=== PATIENT | female | born 1990 | race Caucasian/White ===

== ENCOUNTER 2016-10-08 17:59 | Emergency (ER) | payer BC ==
[2016-10-08 18:16] VITALS: BP 145/75
--- NOTE | 2016-10-08 19:59 | EDM.PDOC ---
ED HPI GENERAL MEDICAL PROBLEM - General Chief Complaint: Respiratory Problem Stated Complaint: COUGH Time Seen by Provider: 10/08/16 19:04 Source of Information: Reports: Patient, Family (), RN Notes Reviewed History Limitations: Reports: No Limitations - History of Present Illness INITIAL COMMENTS - FREE TEXT/NARRATIVE: The patient states that she has had a cough, occasionally productive of yellow sputum, since yesterday. She states that when she coughs, she sometimes feels short of breath. No recent fever. She states that her symptoms are similar to previous bouts that she was told were due to bronchitis. Previous treatments included inhaled medicines along with steroids and antibiotics. She states that she was diagnosed with hayfever about 2 weeks ago, and was treated with Zyrtec. Chest Pain Score (Numeric/FACES): 2 - Related Data Allergies Allergy/AdvReac Type Severity Reaction Status Date / Time No Known Allergies Allergy Verified 10/08/16 18:16 Home Meds: Home Meds . 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[employer]) ED ROS GENERAL - Review of Systems Review Of Systems: See Below Constitutional: Reports: No Symptoms HEENT: Reports: Rhinitis Respiratory: Reports: Cough, Sputum (yellow) Cardiovascular: Reports: No Symptoms Endocrine: Reports: No Symptoms GI/Abdominal: Reports: No Symptoms : Reports: No Symptoms Musculoskeletal: Reports: No Symptoms Skin: Reports: No Symptoms Neurological: Reports: No Symptoms Psychiatric: Reports: No Symptoms Hematologic/Lymphatic: Reports: No Symptoms Immunologic: Reports: No Symptoms ED EXAM, GENERAL - Physical Exam Exam: See Below Exam Limited By: No Limitations General Appearance: Alert, WD/WN, No Apparent Distress Eye Exam: Bilateral Eye: Normal Inspection Ears: Normal External Exam, Normal Canal, Hearing Grossly Normal, Normal TMs Ear Exam: Bilateral Ear: Auricle Normal, Canal Normal, TM normal Nose: Normal Inspection, No Blood, Clear Rhinorrhea, Other (Bilateral nasal mucosal edema) Throat/Mouth: Normal Inspection, Normal Lips, Normal Teeth, Normal Gums, Normal Voice, No Airway Compromise, Other (Retropharyngeal streaking, consistent with postnasal drip) Head: Atraumatic, Normocephalic Neck: Normal Inspection, Supple, Non-Tender, Full Range of Motion. No: Lymphadenopathy (L), Lymphadenopathy (R) Respiratory/Chest: No Respiratory Distress, Lungs Clear, Normal Breath Sounds, No Accessory Muscle Use, Chest Non-Tender. No: Crackles, Wheezing Cardiovascular: Normal Peripheral Pulses, Regular Rate, Rhythm, No Gallop, No JVD, No Murmur, No Rub Peripheral Pulses: 4+: Radial (L), Radial (R) GI/Abdominal: Normal Bowel Sounds, Soft, Non-Tender, No Organomegaly, No Distention, No Abnormal Bruit, No Mass (Female) Exam: Deferred Rectal (Female) Exam: Deferred Back Exam: Normal Inspection, Full Range of Motion, NT Extremities: Normal Inspection, Normal Range of Motion, No Pedal Edema, Normal Capillary Refill Neurological: Alert, Oriented, Normal Cognition, No Motor/Sensory Deficits Psychiatric: Normal Affect Skin Exam: Warm, Dry, Intact, Normal Color, No Rash Lymphatic: No Adenopathy Course - Vital Signs Last Recorded V/S: Last Vital Signs Temp 36.9 C 10/08/16 18:13 Pulse 85 10/08/16 18:13 Resp 18 10/08/16 18:13 BP 145/75 H 10/08/16 18:13 Pulse Ox 100 10/08/16 18:13 - Orders/Labs/Meds Orders: Active Orders 24 hr Category Date Time Status Chest 2V [CR] Stat Exams 10/08/16 19:15 Taken Labs: Laboratory Tests 10/08/16 10/08/16 Range/Units 19:27 19:27 WBC 10.03 (3.98-10.04) K/mm3 RBC 4.79 (3.98-5.22) M/mm3 Hgb 14.6 (11.2-15.7) gm/L Hct 42.1 (34.1-44.9) % MCV 87.9 (79.4-94.8) fl MCH 30.5 (25.6-32.2) pg MCHC 34.7 (32.2-35.5) g/dl RDW Std Deviation 38.7 (36.4-46.3) fL Plt Count 184 (182-369) K/mm3 MPV 10.1 (9.4-12.3) fl Neutrophils % (Manual) 76 H (40-60) % Band Neutrophils % 0 (0-10) % Lymphocytes % (Manual) 15 L (20-40) % Atypical Lymphs % 0 % Monocytes % (Manual) 2 (2-10) % Eosinophils % (Manual) 6 H (0.7-5.8) % Basophils % (Manual) 1 (0.1-1.2) Platelet Estimate Adequate Plt Morphology Comment Normal RBC Morph Comment Normal Sodium 143 (136-145) mEq/L Potassium 3.5 (3.5-5.1) mEq/L Chloride 107 (98-107) mEq/L Carbon Dioxide 26 (21-32) mEq/L Anion Gap 13.5 (5-15) BUN 5 L (7-18) mg/dL Creatinine 0.9 (0.55-1.02) mg/dL Est Cr Clr Drug Dosing 110.27 mL/min Estimated GFR (MDRD) > 60 (>60) mL/min BUN/Creatinine Ratio 5.6 L (14-18) Glucose 93 (74-106) mg/dL Calcium 8.7 (8.5-10.1) mg/dL Total Bilirubin 0.8 (0.2-1.0) mg/dL AST 34 (15-37) U/L ALT 33 (14-59) U/L Alkaline Phosphatase 102 (46-116) U/L C-Reactive Protein 1.5 H* (<1.0) mg/dL Total Protein 7.8 (6.4-8.2) g/dl Albumin 4.0 (3.4-5.0) g/dl Globulin 3.8 gm/dL Albumin/Globulin Ratio 1.1 (1-2) - Radiology Interpretation Free Text/Narrative:: Two-view chest radiograph appears to be grossly normal. Cardiac silhouette is within normal limits. No pulmonary vascular congestion. No pleural effusions. No focal infiltrate. No pneumothorax. Formal read per the Radiologist pending. - Re-Assessments/Exams Free Text/Narrative Re-Assessment/Exam: 05/14/17 20:17 Test results discussed with the patient. The patient does not have an elevated WBC count concerning for infection, and her CRP is only slightly elevated at 1.5. Her chest radiograph shows no infiltrate, nor any bronchial markings. Further, while the patient is complaining of a cough, it is only occasionally productive, and there are no wheezes on auscultation. There is retropharyngeal streaking, consistent with postnasal drip. In short, the patient appears to have a viral URI with cough, not bronchitis. I explained to the patient that there are no medicines that we can give to modify the course of a viral URI. Departure - Departure Time of Disposition: 20:21 Disposition: Home, Self-Care 01 Condition: good Clinical Impression: Viral URI with cough - Discharge Information Instructions: Upper Respiratory Infection, Adult, [id number] Referrals: PCP,None [Primary Care Provider] - Kathi Isaacs PA-C [Physician [employer]] - Forms: ED Department Discharge Additional Instructions: You were seen in the emergency room for a cough and some shortness of breath since yesterday. Workup in the ER included a CBC, CMP, CRP, and a chest x-ray. Your entire workup was normal, with the exception of your CRP (inflammatory marker) being slightly elevated at 1.5. This is consistent with a viral illness , not a bacterial infection. Your chest x-ray is normal, with no suggestion of pneumonia or bronchitis. You MOST LIKELY have a viral upper respiratory infection with cough, also known as a common cold. Unfortunately, there are no medicines that alter the course of a common cold, and we DO NOT recommend you take any [id number] cough or cold remedies, as they do not work. If your symptoms persist, please followup with Kathi Isaacs in the clinic. If any other problems, please do not hesitate to return to the ER. - My Orders Last 24 Hours: My Active Orders 10/08/16 19:15 Chest 2V [CR] Stat - Assessment/Plan Last 24 Hours: My Active Orders 10/08/16 19:15 Chest 2V [CR] Stat
--- NOTE | 2016-10-09 09:49 | CR ---
Chest: Two views of the chest were obtained. Comparison: Previous chest x-ray of 02/25/09. Heart size and mediastinum are normal. Lungs are clear. Bony structures show minimal scoliosis within the spine. Impression: 1. Nothing acute is identified on two-view chest x-ray. Diagnostic code #1
== END 2016-10-08 21:00 | disposition home or self-care (01) ==
LOC: JD.ED 17:59
DX: J06.9 Acute upper respiratory infection, unspecified (principal); F17.210 Nicotine dependence, cigarettes, uncomplicated
CPT/HCPCS: 36415; 71020; 71020-26; 80053; 85025; 86140; 99282; 99285

== ENCOUNTER 2022-02-13 11:15 | Inpatient (IN) | payer BC ==
[~2022-02-13 11:15] MED LIST: Bupivacaine 0.25% 10 ML SDV ONE
[2022-02-13] MEDS ORDERED: Ondansetron 4 MG/2 ML SDV IVPUSH PRN (11:29)
[2022-02-13] MEDS ORDERED: Sodium Chloride 0.9% 10 ML Syringe FLUSH PRN (11:29)
[2022-02-13] MEDS ORDERED: Nalbuphine HCl 10 MG/ 1ML Amp IVPUSH PRN (11:29)
[2022-02-13] MEDS ORDERED: Lidocaine 1% 50 ML MDV INJECT ONE (11:29)
[2022-02-13] MEDS ORDERED: Oxytocin/Lactated Ringers 10 UNIT/1,000 ML BAG IV SCH ×2 (11:30)
[2022-02-13] MEDS: Lactated Ringers 1,000 ML IV SCH ×2 (12:00→13:23)
[2022-02-13] MEDS ORDERED: fentaNYL 100 MCG/2 ML SDV EPIDUR PRN (13:01)
[2022-02-13] MEDS ORDERED: diphenhydrAMINE 50 MG/ML SDV IVPUSH PRN (13:01)
[2022-02-13] MEDS ORDERED: ePHEDrine 50 MG/ML SDV IVPUSH PRN (13:01)
[2022-02-13] MEDS ORDERED: Bupivacaine/fentaNYL/NS 100 ML Bag EPIDUR PRN (13:01)
[2022-02-13] MEDS ORDERED: Witch Hazel Medicated Pads 40/Jar TOP PRN (16:11)
[2022-02-13] MEDS ORDERED: Benzocaine/Menthol 20%-0.5% Spray 78 GM Cannister TOP PRN (16:11)
[2022-02-13] MEDS ORDERED: Docusate Sodium 100 MG Cap PO PRN (16:11)
[2022-02-13] MEDS ORDERED: Acetaminophen 325 MG Tab PO PRN (16:11)
[2022-02-13] MEDS ORDERED: Sodium Chloride 0.9% 10 ML Syringe FLUSH SCH (21:00)
[2022-02-13] MEDS: Ibuprofen 600 MG Tab PO PRN (22:53)
[2022-02-14] MEDS: Ibuprofen 600 MG Tab PO PRN ×2 (07:31→17:07)
[2022-02-14 15:56] VITALS: BP 117/89; PULSE 72
== END 2022-02-14 17:29 | disposition home or self-care (01) | DRG 560 ==
LOC: JD.OBCHECK 11:15 → JD.OB 11:19 → JD.OBCHECK 12:22 → OBSVTOIN 15:38 → JD.OB 15:39
PROVIDERS: ADMIT Obstetrics & Gynecology; ATTEND Obstetrics & Gynecology
PROC: 10E0XZZ Delivery of Products of Conception, External Approach (ICD-10-PCS; principal; 2022-02-13)
PROC: 10907ZC Drainage of Amniotic Fluid, Therapeutic from Products of Conception, Via Natural or Artificial Opening (ICD-10-PCS; 2022-02-13)
PROC: 3E0R3BZ Introduction of Anesthetic Agent into Spinal Canal, Percutaneous Approach (ICD-10-PCS; 2022-02-13)
PROC: 00HU33Z Insertion of Infusion Device into Spinal Canal, Percutaneous Approach (ICD-10-PCS; 2022-02-13)
DX: O24.424 Gestational diabetes mellitus in childbirth, insulin controlled (principal); Z37.0 Single live birth; Z3A.38 38 weeks gestation of pregnancy; O99.344 Other mental disorders complicating childbirth; F41.9 Anxiety disorder, unspecified; O69.81X0 Labor and delivery complicated by cord around neck, without compression, not applicable or unspecified
CPT/HCPCS: 01967; 36415; 51701; 59025; 59409; 82947; 85025; 85461; 86592; 86850; 86900; 86901; A9270-GY; J2590; J2790; J3010; J3490; J7120

== ENCOUNTER 2023-11-13 06:31 | Day surgery (SDC) | payer BC ==
[~2023-11-13 06:31] MED LIST changes: -Bupivacaine 0.25% 10 ML SDV ONE; +Dexamethasone 4 MG/ML 5 ML MDV ONE; +Midazolam 1 MG/ML 2 ML SDV ONE; +Ondansetron 4 MG/2 ML SDV ONE; +Phenylephrine 1% 10 MG/ML SDV ONE; +Propofol 200 MG/20 ML SDV ONE; +Rocuronium 50 MG/5 ML Vial ONE; +Sodium Chloride 0.9% 10 ML Syringe FLUSH PRN; +Sodium Chloride 0.9% 10 ML Syringe FLUSH SCH; +Sodium Chloride 0.9% 100 ML ONE; +ceFAZolin 2 GM Vial ONE; +fentaNYL 250 MCG/5 ML SDV ONE
[2023-11-13] MEDS ORDERED: Ondansetron 4 MG/2 ML SDV IVPUSH PRN (07:12)
[2023-11-13] MEDS: Lactated Ringers 1,000 ML IV SCH (07:23)
[2023-11-13] MEDS ORDERED: Bupivacaine 0.25% 10 ML SDV ONE (07:24)
[2023-11-13] MEDS ORDERED: fentaNYL 100 MCG/2 ML SDV ONE (07:24)
[2023-11-13 07:27] LABS: HEMATOCRIT 42.9 % (37.0-47.0); HEMOGLOBIN 14.6 gm/dl (12.0-16.0); MEAN CORPUSCULAR HEMOGLOBIN 28.2 pg (28.0-32.0); MEAN PLATELET VOLUME 10.8 fl (9.4-12.3); PLATELET COUNT,PLT 226 K/mm3 (150-400); RED BLOOD CELL COUNT 5.17 M/mm3 (4.10-5.30); WHITE BLOOD CELL COUNT,WBC 5.18 K/mm3 (3.9-11.3)
[2023-11-13 07:31] LABS: ANION GAP 13.7 (5-15); BUN/CREATININE RATIO 7.5 (14-18); CALCIUM 9.1 mg/dL (8.5-10.1); CREATININE 0.8 mg/dL (0.55-1.02); EST CRCL DRUG DOSING (CG) 116.5 mL/min; POTASSIUM,K 3.7 mEq/L (3.5-5.1)
[2023-11-13] MEDS: Scopalamine 1mg/3day Transdermal Patch TRDERM PRN (07:37)
[2023-11-13] MEDS ORDERED: Sugammadex Sodium 200 MG/2 ML VIAL IV ONE (08:03)
[2023-11-13] MEDS ORDERED: Ketorolac 30 MG/ML SDV ONE (08:03)
[2023-11-13] MEDS: EPINEPHrine 1 MG/ML SDV ONE (08:11)
[2023-11-13] MEDS: Bupivacaine 0.25% 10 ML SDV ONE (08:11)
[2023-11-13] MEDS: Bupivacaine 0.5% 30 ML SDV ONE (08:11)
[2023-11-13] MEDS: fentaNYL 100 MCG/2 ML SDV IVPUSH PRN (09:50)
[2023-11-13] MEDS: HYDROmorphone 0.5 MG/0.5 ML Syringe IVPUSH PRN (10:10)
[2023-11-13 12:48] VITALS: BP 126/71; PULSE 60
== END 2023-11-13 13:15 | disposition home or self-care (01) ==
LOC: JD.SDS 06:31
PROVIDERS: ATTEND Obstetrics & Gynecology
DX: N87.9 Dysplasia of cervix uteri, unspecified (principal); N72 Inflammatory disease of cervix uteri; F41.1 Generalized anxiety disorder; I10 Essential (primary) hypertension; Z87.891 Personal history of nicotine dependence; Z79.899 Other long term (current) drug therapy
CPT/HCPCS: 36415; 58552; 80048; 81025; 85027; 86850; 86900; 86901; A9270; J0171; J0665; J0690; J1100; J1170; J1885; J2250; J2371; J2405; J2704; J3010; J3490; J7120